=== PATIENT | male | born 1975 | race African-American/Black ===

== ENCOUNTER 2020-03-06 13:07 | Inpatient (IN) | payer OTHER, MEDICAID ==
[~2020-03-06] VITALS: Ht 167.6 cm; Wt 64.0 kg
[2020-03-06] MEDS ORDERED: VECURONIUM BROMIDE 10 MG/VIAL IV ONE (13:45)
[2020-03-06] MEDS ORDERED: SODIUM CHLORIDE 0.9% 10ML VIAL ONE (13:45)
[2020-03-06] MEDS ORDERED: ETOMIDATE 2MG/ML 10ML VIAL IV ONE (13:45)
[2020-03-06] MEDS ORDERED: PROPOFOL 10MG/ML 100ML 100 ML IV SCH (13:45)
[2020-03-06 14:17] LABS: HEMATOCRIT. 21.7 % (42.0-52.0); MEAN CORPUSCULAR HEMOGLOBIN 30.1 pg (28.0-32.0); MEAN CORPUSCULAR VOLUME 97.3 fL (80.0-94.0); MEAN PLATELET VOLUME 7.9 fl (7.4-10.4); RED BLOOD CELL COUNT 2.23 mill/uL (4.7-6.1); RED CELL DISTRIBUTION WIDTH 18.4 % (11.6-14.6)
[2020-03-06 14:21] LABS: CHLORIDE 101 mEq/L (98-107)
[2020-03-06 14:32] LABS: HEMOGLOBIN. 6.7 g/dL (14.0-18.0)
[2020-03-06] MEDS ORDERED: LEVETIRACETAM 500MG PREMIX 100 ML IV ONE (15:15)
[2020-03-06 15:46] LABS: NUCLEATED RED BLOOD CELLS 1 /100 WBC
[2020-03-06 15:46] LABS: BG BASE EXCESS -1.2 mmol/L (-2.0-2.0); BG CARBOXYHEMOGLOBIN 0.3 % (0.5-1.5); BG DEOXYHEMOGLOBIN 1.2 % (0.0-5.0); BG FRACTION INSPIRED OXYGEN 100; BG METHEMOGLOBIN 0.4 % (0.0-1.5); BG OXYGEN SATURATION 98.8 % (92.0-98.5); BG OXYHEMOGLOBIN 98.1 % (94.0-97.0); BG PCO2 27.4 mmHg (35.0-45.0); BG PH 7.503 (7.350-7.450); BG PO2 141.4 mmHg (75.0-100.0); BG SAMPLE SITE RIGHT RADIAL; BG TOTAL HEMOGLOBIN 10.9 g/dL (12.0-18.0); BG VENT MODE VENT - AC
[2020-03-06 15:47] LABS: PLATELET ESTIMATE DECREASED
[2020-03-06 15:49] LABS: PLATELET 60 x1000/uL (130-400)
[2020-03-07] VITALS (34 sets, daily range): BP systolic 109–159; BP diastolic 54–104
[2020-03-07 06:17] LABS: HEPATITIS B SURFACE AB < 3.1 mIU/mL
[2020-03-07] MEDS: PROPOFOL 10MG/ML 100ML 100 ML IV PRN ×3 (07:52→19:52)
[2020-03-07 08:37] LABS: BG BASE EXCESS -2.1 mmol/L (-2.0-2.0); BG CARBOXYHEMOGLOBIN 0.3 % (0.5-1.5); BG DEOXYHEMOGLOBIN 0.7 % (0.0-5.0); BG FRACTION INSPIRED OXYGEN 100; BG HCO3 ACT 22.9 mmol/L (22.0-26.0); BG METHEMOGLOBIN 0.2 % (0.0-1.5); BG OXYGEN SATURATION 99.3 % (92.0-98.5); BG OXYHEMOGLOBIN 98.8 % (94.0-97.0); BG PCO2 40.5 mmHg (35.0-45.0); BG PH 7.371 (7.350-7.450); BG SAMPLE SITE RIGHT RADIAL; BG TOTAL HEMOGLOBIN 11.1 g/dL (12.0-18.0); BG TOTAL RESPIRATORY RATE 25 b/min; BG VENT MODE VENT - AC
[2020-03-07] MEDS ORDERED: CEFTRIAXONE 2 G PREMIX 50 ML IV SCH (14:45)
[2020-03-07] MEDS ORDERED: SEVE800T8 PO (14:48)
[2020-03-07] MEDS ORDERED: METO-539 PO (14:48)
[2020-03-07] MEDS ORDERED: AMLO10TA80 PO (14:48)
[2020-03-07] MEDS ORDERED: SULF1TAB44 PO (14:48)
[2020-03-07] MEDS ORDERED: P20 PO (14:48)
[2020-03-07] MEDS ORDERED: AZIT500T8 PO (14:48)
[2020-03-07] MEDS ORDERED: MYCO180T3 PO (14:48)
[2020-03-07] MEDS ORDERED: OMEP40CA12 PO (14:48)
[2020-03-07] MEDS ORDERED: LISI40TA4 PO (14:48)
[2020-03-07] MEDS ORDERED: METRONIDAZOLE 1000 MG PREMIX 200 ML IV SCH (16:00)
[2020-03-07] MEDS: CEFTRIAXONE 2 G in DEXTROSE 5% WATER 50 ML IV SCH (16:38)
[2020-03-07 17:21] LABS: BASOPHILS % 1.2 % (0.0-2.0); EOSINOPHILS % 3.2 % (0.0-5.0); HEMOGLOBIN. 10.3 g/dL (14.0-18.0); LYMPHOCYTES % 9.3 % (20.0-50.0); MEAN CORPUSCULAR HEMOGLOBIN 31.1 pg (28.0-32.0); MEAN CORPUSCULAR VOLUME 90.7 fL (80.0-94.0); MEAN PLATELET VOLUME 8.5 fl (7.4-10.4); MONOCYTES % 13.4 % (2.0-8.0); NEUTROPHILS % 72.9 % (40.0-76.0); PLATELET 83 x1000/uL (130-400); RED BLOOD CELL COUNT 3.31 mill/uL (4.7-6.1); RED CELL DISTRIBUTION WIDTH 17.6 % (11.6-14.6)
[2020-03-07 17:26] LABS: PROTHROMBIN TIME 10.6 sec (9.6-11.0)
[2020-03-07 17:32] LABS: CHLORIDE 101 mEq/L (98-107)
[2020-03-07 17:38] LABS: PHOSPHORUS 7.7 mg/dL (2.5-4.9)
[2020-03-07] MEDS: METRONIDAZOLE IV SCH (18:13)
[2020-03-07] MEDS ORDERED: CLONIDINE 0.1MG TABLET PO PRN (18:15)
[2020-03-07] MEDS ORDERED: MAGNESIUM/ALUMINUM HYDROXIDE/SIMETHICONE 30ML UDC PO PRN (18:15)
[2020-03-07] MEDS ORDERED: ENOXAPARIN 40MG/0.4ML SYR SUBCUT SCH (18:15)
[2020-03-07] MEDS ORDERED: LEVETIRACETAM 500 MG in SODIUM CHLORIDE 0.9% 100 ML IV SCH (18:15)
[2020-03-07] MEDS ORDERED: DEXT 5%/0.45% NACL 500ML 500 ML IV ONE (18:45)
[2020-03-07] MEDS: LEVETIRACETAM 500MG PREMIX 100 ML IV SCH (20:53)
[2020-03-08] VITALS (61 sets, daily range): BP systolic 78–153; BP diastolic 37–89
[2020-03-08] MEDS: PROPOFOL 10MG/ML 100ML 100 ML IV PRN ×3 (03:18→14:27)
[2020-03-08 04:39] LABS: HEMATOCRIT. 28.6 % (42.0-52.0); HEMOGLOBIN. 9.6 g/dL (14.0-18.0); MEAN CORPUSCULAR HEMOGLOBIN 30.6 pg (28.0-32.0); MEAN CORPUSCULAR VOLUME 91.4 fL (80.0-94.0); MEAN PLATELET VOLUME 8.5 fl (7.4-10.4); PLATELET 76 x1000/uL (130-400); RED BLOOD CELL COUNT 3.13 mill/uL (4.7-6.1); RED CELL DISTRIBUTION WIDTH 17.6 % (11.6-14.6)
[2020-03-08 07:46] LABS: BG BASE EXCESS -0.5 mmol/L (-2.0-2.0); BG CARBOXYHEMOGLOBIN 0.3 % (0.5-1.5); BG DEOXYHEMOGLOBIN 4.3 % (0.0-5.0); BG HCO3 ACT 24.8 mmol/L (22.0-26.0); BG METHEMOGLOBIN 0.1 % (0.0-1.5); BG OXYGEN SATURATION 95.7 % (92.0-98.5); BG OXYHEMOGLOBIN 95.3 % (94.0-97.0); BG PCO2 43.5 mmHg (35.0-45.0); BG PH 7.374 (7.350-7.450); BG PO2 84.1 mmHg (75.0-100.0); BG SAMPLE SITE RIGHT RADIAL; BG TOTAL HEMOGLOBIN 9.7 g/dL (12.0-18.0); BG VENT MODE VENT - AC
[2020-03-08 08:24] LABS: NUCLEATED RED BLOOD CELLS 1 /100 WBC
[2020-03-08 08:25] LABS: PLATELET ESTIMATE DECREASED
[2020-03-08] MEDS: PANTOPRAZOLE SODIUM 40 MG/VIAL IV SCH (09:22)
[2020-03-08] MEDS: LEVETIRACETAM 500MG PREMIX 100 ML IV SCH ×2 (09:23→21:28)
[2020-03-08] MEDS ORDERED: PHENYLEPHRINE 100 MG in DEXT 5% WATER 240 ML IV PRN (11:30)
[2020-03-08] MEDS: MIDAZOLAM HCL 100 MG in DEXT 5% WATER 80 ML IV PRN (15:17)
[2020-03-08] MEDS: FENTANYL CITRATE/PF 1,000 MCG in SODIUM CHLORIDE 0.9% 80 ML IV PRN (15:18)
[2020-03-08] MEDS: CEFTRIAXONE 2 G in DEXTROSE 5% WATER 50 ML IV SCH (15:33)
[2020-03-08] MEDS: METRONIDAZOLE IV SCH (15:33)
[2020-03-08 20:22] LABS: HEPATITIS B SURFACE ANTIGEN NEGATIVE
[2020-03-08] MEDS: IPRATROPIUM/ALBUTEROL 0.5-3(2.5)MG/3ML NEB HHN SCH (20:32)
[2020-03-08 20:51] LABS: HEPATITIS A AB IGM NEGATIVE (NEGATIVE)
[2020-03-08] MEDS: PANTOT AC/MIN OIL/PET HY-PHL OINT (AQUAPHOR) TOP SCH (21:28)
[2020-03-09] VITALS (49 sets, daily range): BP systolic 82–143; BP diastolic 42–82
[2020-03-09] MEDS: IPRATROPIUM/ALBUTEROL 0.5-3(2.5)MG/3ML NEB HHN SCH ×4 (00:36→20:10)
[2020-03-09 06:32] LABS: HEMATOCRIT. 28.6 % (42.0-52.0); HEMOGLOBIN. 9.3 g/dL (14.0-18.0); MEAN CORPUSCULAR HEMOGLOBIN 30.1 pg (28.0-32.0); MEAN CORPUSCULAR VOLUME 92.4 fL (80.0-94.0); MEAN PLATELET VOLUME 9.3 fl (7.4-10.4); PLATELET 110 x1000/uL (130-400); RED CELL DISTRIBUTION WIDTH 18.2 % (11.6-14.6)
[2020-03-09] MEDS: PANTOPRAZOLE SODIUM 40 MG/VIAL IV SCH (08:49)
[2020-03-09] MEDS: PANTOT AC/MIN OIL/PET HY-PHL OINT (AQUAPHOR) TOP SCH (08:49)
[2020-03-09] MEDS: LEVETIRACETAM 500MG PREMIX 100 ML IV SCH (08:49)
[2020-03-09] MEDS: FENTANYL CITRATE/PF 1,000 MCG in SODIUM CHLORIDE 0.9% 80 ML IV PRN (08:50)
[2020-03-09] MEDS: MIDAZOLAM HCL 100 MG in DEXT 5% WATER 80 ML IV PRN (08:50)
[2020-03-09 10:22] LABS: BG BASE EXCESS -2.1 mmol/L (-2.0-2.0); BG CARBOXYHEMOGLOBIN 0.3 % (0.5-1.5); BG DEOXYHEMOGLOBIN 5.5 % (0.0-5.0); BG FRACTION INSPIRED OXYGEN 50; BG HCO3 ACT 23.8 mmol/L (22.0-26.0); BG METHEMOGLOBIN 0.3 % (0.0-1.5); BG OXYGEN SATURATION 94.5 % (92.0-98.5); BG OXYHEMOGLOBIN 93.9 % (94.0-97.0); BG PCO2 45.4 mmHg (35.0-45.0); BG PH 7.337 (7.350-7.450); BG PO2 77.8 mmHg (75.0-100.0); BG SAMPLE SITE RIGHT RADIAL; BG TOTAL HEMOGLOBIN 9.9 g/dL (12.0-18.0); BG VENT MODE VENT - AC
[2020-03-09 10:39] LABS: PLATELET ESTIMATE SLIGHTLY DECREASED
[2020-03-09] MEDS ORDERED: SODIUM POLYSTYRENE SULFONATE 15 G/60 ML BOT PO NR (12:00)
[2020-03-09] MEDS: CEFEPIME 1,000 MG in DEXTROSE 5% WATER 50 ML IV SCH (12:22)
[2020-03-09] MEDS ORDERED: METOPROLOL TARTRATE 25MG TABLET PO NR (15:30)
[2020-03-09] MEDS: METRONIDAZOLE IV SCH (16:42)
[2020-03-10] VITALS (85 sets, daily range): BP systolic 82–156; BP diastolic 37–87
[2020-03-10 00:25] LABS: T4 FREE 1.17 ng/dL (0.76-1.46)
[2020-03-10] MEDS: IPRATROPIUM/ALBUTEROL 0.5-3(2.5)MG/3ML NEB HHN SCH ×4 (03:08→20:10)
[2020-03-10] MEDS: METHYLPREDNISOLONE SOD SUCC 40 MG/ML VIAL IV SCH ×4 (04:36→17:29)
[2020-03-10] MEDS: LEVETIRACETAM 500MG PREMIX 100 ML IV SCH ×2 (04:38→11:28)
[2020-03-10] MEDS: MIDAZOLAM HCL 100 MG in DEXT 5% WATER 80 ML IV PRN (05:58)
[2020-03-10] MEDS: FENTANYL CITRATE/PF 1,000 MCG in SODIUM CHLORIDE 0.9% 80 ML IV PRN (05:58)
[2020-03-10 06:36] LABS: CLARITY URINE CLEAR (CLEAR); COLOR URINE YELLOW (YELLOW); KETONES URINE NEGATIVE (NEGATIVE); LEUKOCYTE ESTERASE URINE NEGATIVE (NEGATIVE); NITRITE URINE NEGATIVE (NEGATIVE); OCCULT BLOOD URINE NEGATIVE (NEGATIVE); PH URINE >=9.0 (4.5-8.0); PROTEIN URINE NEGATIVE (NEGATIVE); SPECIFIC GRAVITY URINE 1.008 (1.005-1.030); UROBILINOGEN URINE 0.2 E.U./dL (0.2-1.0)
[2020-03-10 07:22] LABS: *AMPHETAMINES SCREEN URINE NEGATIVE (NEGATIVE); *BARBITURATES SCREEN URINE NEGATIVE (NEGATIVE); *BENZODIAZEPINES SCREEN URINE PRESUMTIVE POSITIVE (NEGATIVE)
[2020-03-10 07:23] LABS: *COCAINE SCREEN URINE NEGATIVE (NEGATIVE); CANNABINOID URINE SCREEN NEGATIVE (NEGATIVE); METHADONE URINE SCREEN NEGATIVE (NEGATIVE); OPIATES URINE SCREEN NEGATIVE (NEGATIVE); PHENCYCLIDINE URINE SCREEN NEGATIVE (NEGATIVE)
[2020-03-10] MEDS ORDERED: HYDROCORTISONE 2.5% CREAM 20GM TOP SCH (09:00)
[2020-03-10] MEDS ORDERED: TRIAMCINOLONE ACETONIDE 0.1% CREAM 15GM TOP SCH (09:00)
[2020-03-10 09:06] LABS: MEAN CORPUSCULAR VOLUME 91.1 fL (80.0-94.0); MEAN PLATELET VOLUME 8.4 fl (7.4-10.4); PLATELET 126 x1000/uL (130-400); RED BLOOD CELL COUNT 3.68 mill/uL (4.7-6.1)
[2020-03-10] MEDS: PANTOPRAZOLE SODIUM 40 MG/VIAL IV SCH (09:23)
[2020-03-10 09:24] LABS: HEMATOCRIT. 33.5 % (42.0-52.0); HEMOGLOBIN. 10.7 g/dL (14.0-18.0)
[2020-03-10] MEDS: PANTOT AC/MIN OIL/PET HY-PHL OINT (AQUAPHOR) TOP SCH (09:24)
[2020-03-10 10:44] LABS: BG BASE EXCESS -0.9 mmol/L (-2.0-2.0); BG CARBOXYHEMOGLOBIN 0.3 % (0.5-1.5); BG DEOXYHEMOGLOBIN 2.4 % (0.0-5.0); BG FRACTION INSPIRED OXYGEN 50; BG HCO3 ACT 25.8 mmol/L (22.0-26.0); BG METHEMOGLOBIN 0.3 % (0.0-1.5); BG OXYGEN SATURATION 97.6 % (92.0-98.5); BG PCO2 52.7 mmHg (35.0-45.0); BG PH 7.307 (7.350-7.450); BG PO2 108.1 mmHg (75.0-100.0); BG SAMPLE SITE RIGHT RADIAL; BG TOTAL HEMOGLOBIN 9.9 g/dL (12.0-18.0); BG VENT MODE VENT - AC
[2020-03-10] MEDS: CEFEPIME 1,000 MG in DEXTROSE 5% WATER 50 ML IV SCH (12:13)
[2020-03-10 12:39] LABS: NUCLEATED RED BLOOD CELLS 2 /100 WBC
[2020-03-10 12:40] LABS: PLATELET ESTIMATE SLIGHTLY DECREASED; TOTAL IRON BINDING CAPACITY 246 ug/dL (250-450)
[2020-03-10 13:07] LABS: VITAMIN B12 SERUM >2000 pg/mL pg/mL (211-911)
[2020-03-10 13:48] LABS: FERRITIN 3529 ng/mL (22-322)
[2020-03-10] MEDS: METRONIDAZOLE IV SCH (16:38)
[2020-03-11 05:11] LABS: HIV SCREEN 4G Non Reactive (Non Reactive)
[2020-03-11 09:11] LABS: G6PD RBC 2.93 x10E6/uL (4.14-5.80)
[2020-03-11 15:06] LABS: G6PD QUANTITATIVE 519 (127-427)
[2020-03-11 17:10] LABS: ANTI-DNA DOUBLE STRANDED QUANT 49 IU/mL (0-9); RNP ANTIBODY > 8.0 AI (0.0-0.9); SMITH ANTIBODY > 8.0 AI (0.0-0.9)
== END 2020-03-10 22:35 | disposition short-term general hospital (02) | DRG 870 ==
LOC: ER 14:29 → EDBEDREQ 14:52 → MICUSO 17:30 → EDBEDREQ 17:37 → CVICU 03-07 01:22
PROVIDERS: ADMIT Internal Medicine; ATTEND Internal Medicine
PROC: 30233N1 Transfusion of Nonautologous Red Blood Cells into Peripheral Vein, Percutaneous Approach (ICD-10-PCS; 2020-03-06)
PROC: 5A1955Z Respiratory Ventilation, Greater than 96 Consecutive Hours (ICD-10-PCS; principal; 2020-03-07)
PROC: 0BH18EZ Insertion of Endotracheal Airway into Trachea, Via Natural or Artificial Opening Endoscopic (ICD-10-PCS; 2020-03-07)
PROC: 02HV33Z Insertion of Infusion Device into Superior Vena Cava, Percutaneous Approach (ICD-10-PCS; 2020-03-08)
PROC: B548ZZA Ultrasonography of Superior Vena Cava, Guidance (ICD-10-PCS; 2020-03-08)
DX: A41.9 Sepsis, unspecified organism (principal); G93.41 Metabolic encephalopathy; J69.0 Pneumonitis due to inhalation of food and vomit; J96.01 Acute respiratory failure with hypoxia; N18.6 End stage renal disease; R65.21 Severe sepsis with septic shock; E87.4 Mixed disorder of acid-base balance; I12.0 Hypertensive chronic kidney disease with stage 5 chronic kidney disease or end stage renal disease; G40.901 Epilepsy, unspecified, not intractable, with status epilepticus; E88.09 Other disorders of plasma-protein metabolism, not elsewhere classified; E87.70 Fluid overload, unspecified; E87.5 Hyperkalemia; E83.52 Hypercalcemia; D64.9 Anemia, unspecified; D69.6 Thrombocytopenia, unspecified; E78.1 Pure hyperglyceridemia; D72.810 Lymphocytopenia; D72.821 Monocytosis (symptomatic); K21.9 Gastro-esophageal reflux disease without esophagitis; M32.9 Systemic lupus erythematosus, unspecified; R93.89 Abnormal findings on diagnostic imaging of other specified body structures; Z20.828 Contact with and (suspected) exposure to other viral communicable diseases; Z91.81 History of falling; Z99.2 Dependence on renal dialysis; Z79.899 Other long term (current) drug therapy
CPT/HCPCS: 36415; 36600; 70551; 71045; 76937; 80048; 80053; 80061; 80305; 80320; 81003; 82140; 82164; 82375; 82607; 82728; 82746; 82805; 82955; 82962; 83036; 83520; 83540; 83550; 83605; 83735; 83880; 84100; 84439; 84443; 84478; 84480; 84484; 84550; 85025; 85041; 85379; 85613; 85651; 85732; 86022; 86147; 86160; 86225; 86235; 86256; 86592; 86705; 86706; 86709; 86780; 86803; 86850; 86880; 86900; 86920; 87070; 87340; 87389; 87426; 93005; 93970; 99291; C1725; C9113; J0692; J0696; J1953; J2250; J2370; J2704; J2920; J3010; J3490; J7050; J7060; P9016; G0480